=== PATIENT | male | born 1965 | race Caucasian/White ===

== ENCOUNTER 2016-06-10 12:38 | Emergency (ER) | payer SELFPAY ==
[~2016-06-10] VITALS: Ht 180.3 cm; Wt 97.7 kg
[~2016-06-10 12:38] MED LIST: AMOXICILLIN 50500 MG PO; AMOXICILLIN 8751 TAB PO; BACTRIM 400 MG-1 TAB PO; BACTRIM DS 8001 TAB PO; BACTROBAN 22GM22 GM NAS; CEPHALEXIN500 M1 PO; CLEOCIN HC150 MG/CAP PO; DOXYCYCLINE 10100 MG PO; FLAGYL500 MG PO; FLEXERIL10 MG PO; FLOMAX 0.40.4 MG/CAP PO; LEVAQUIN 5500 MG/TA1 PO; LEVAQUIN 5500 MG/TAB PO; LORTAB 5/500 501 TAB PO; MEN'S MULTIVITA1 TAB PO; MOTRIN 200200 MG/TAB PO; NAPROSYN500 MG PO; NEOSPORIN1 OIN OP; NO HOME MEDICATIONS; NORCO 325 MG-51 TAB PO; NORCO 325 MG-7.1 TAB; NORCO 325 MG-7.1 TAB PO; PEN-VEE K500 MG PO; PHENERGAN W/CO120 M1 PO; SEPTRA DS 8001 TAB PO; TESSALON PERLE200 MG PO; TRIAMCINOLONE A15 G2 TP; VALIUM5 MG PO; VENTOLIN0.09 MG IH; ZITHROMAX 250M250 MG PO; ZOFRAN 4MG T4 MG/TAB PO; tussionex PO
[2016-06-10 12:41] VITALS: TEMP 99.3
[2016-06-10 13:54] LABS: BASO % 0.3 % (0.0-2.0); EOS % 0.2 % (0-4.0); GRAN # 8.3 (1.4-6.5); GRAN % 76.7 % (42.2-75.2); HEMATOCRIT 43.4 % (42.0-52.0); HEMOGLOBIN 14.9 g/dl (13.5-18.0); LYMPH # 1.5 (1.2-3.4); LYMPH % 13.5 % (20.0-51.0); MEAN CELL VOLUME 85 fl (80.0-100.0); MEAN CORPUSCULAR HEMOGLOBIN 29 pg (27.0-31.0); MEAN CORPUSCULAR HGB CONC 34 g/dl (33.0-37.0); MEAN PLATELET VOLUME 9.6 fl (7.4-10.4); PLATELET COUNT 210 K/mm3 (130-400); REDCELL DISTRIBUTION WIDTH-CV 12.2 % (11.5-14.5); WHITE BLOOD COUNT 10.8 K/mm3 (4.8-10.8)
[2016-06-10 14:02] LABS: ADJUSTED CALCIUM 9.2 mg/dL (8.4-10.2); ALBUMIN 4.4 gm/dL (3.5-5.0); CALCIUM 9.5 mg/dL (8.4-10.2); CREATININE, serum 1.2 mg/dL (0.66-1.25); POTASSIUM 3.7 mmol/L (3.4-5.0); TOTAL PROTEIN 7.6 gm/dL (6.4-8.2)
[2016-06-10 14:10] LABS: INFLUENZA B NEGATIVE
[2016-06-10 14:55] LABS: PH 5 (5-8); SQUAMOUS EPITHELIAL None Seen /hpf; URINE APPEARANCE Clear; URINE BACTERIA None Seen /hpf; URINE BILIRUBIN Negative (NEGATIVE); URINE BLOOD Negative (NEGATIVE); URINE COLOR Yellow; URINE GLUCOSE Negative (NEGATIVE); URINE KETONE Trace (NEGATIVE); URINE RBC 0-2 /hpf; URINE UROBILINOGEN Negative (NEGATIVE); URINE WBC 0-2 /hpf
[2016-06-10] MEDS ORDERED: CARAFATE S1 GM/10 ML PO (15:45)
[2016-06-10] MEDS ORDERED: PROTONIX 40MG T40 MG PO (15:45)
[2016-06-10 15:51] VITALS: BP 136/87; PULSE 80
== END 2016-06-10 15:59 | disposition home or self-care (01) ==
LOC: COL.ER 12:38
PROVIDERS: Nurse Practitioner
DX: K29.70 Gastritis, unspecified, without bleeding (principal)
CPT/HCPCS: J2405; J7030

== ENCOUNTER 2016-06-14 23:11 | Emergency (ER) | payer SELFPAY ==
[~2016-06-14] VITALS: Ht 182.9 cm; Wt 90.0 kg
[~2016-06-14 23:11] MED LIST changes: +CARAFATE S1 GM/10 ML PO; +PROTONIX 40MG T40 MG PO
[2016-06-14 23:15] VITALS: TEMP 98.9
[2016-06-15 00:12] LABS: BASO % 0.2 % (0.0-2.0); EOS % 0.2 % (0-4.0); GRAN # 5.9 (1.4-6.5); GRAN % 68.1 % (42.2-75.2); HEMATOCRIT 38.6 % (42.0-52.0); HEMOGLOBIN 13.5 g/dl (13.5-18.0); LYMPH # 2.1 (1.2-3.4); LYMPH % 23.8 % (20.0-51.0); MEAN CELL VOLUME 83 fl (80.0-100.0); MEAN CORPUSCULAR HEMOGLOBIN 29 pg (27.0-31.0); MEAN CORPUSCULAR HGB CONC 35 g/dl (33.0-37.0); MEAN PLATELET VOLUME 9.9 fl (7.4-10.4); MONO # 0.6 (0.1-0.6); MONO % 7.4 % (1.7-9.3); PLATELET COUNT 236 K/mm3 (130-400); RED BLOOD COUNT 4.64 M/mm3 (4.20-5.60); WHITE BLOOD COUNT 8.7 K/mm3 (4.8-10.8)
[2016-06-15 00:27] LABS: ADJUSTED CALCIUM 8.7 mg/dL (8.4-10.2); ALANINE AMINOTRANSFERASE 47 U/L (21-72); ALBUMIN 4.1 gm/dL (3.5-5.0); ALKALINE PHOSPHATASE 73 U/L (50-136); ANION GAP 16 mmol/L (7-16); BILIRUBIN,TOTAL 0.8 mg/dL (0.0-1.0); BLOOD UREA NITROGEN 17 mg/dL (9-20); CALCIUM 8.8 mg/dL (8.4-10.2); CARBON DIOXIDE 24 mmol/L (22-30); CHLORIDE 100 mmol/L (98-107); CREATININE, serum 1.06 mg/dL (0.66-1.25); GLUCOSE 117 mg/dL (74-106); LIPASE 84 U/L (23-300); POTASSIUM 3.6 mmol/L (3.4-5.0); SODIUM 139 mmol/L (137-145); TOTAL PROTEIN 7.4 gm/dL (6.4-8.2)
[2016-06-15 00:39] LABS: B-TYPE NATRIURETIC PEPTIDE 18 pg/mL (0-125)
[2016-06-15 00:40] LABS: TROPONIN-I < 0.012 ng/mL (0.000-0.034)
[2016-06-15] MEDS ORDERED: MAGIC MOUTHWASH1 M1 PO (02:24)
[2016-06-15] MEDS ORDERED: DIFLUCAN200 MG PO (02:24)
[2016-06-15] MEDS ORDERED: ZOVIRAX400 MG PO (02:24)
[2016-06-15] MEDS ORDERED: PHENERGAN 25 TA25 MG PO (02:25)
[2016-06-15 02:59] VITALS: BP 140/78; PULSE 68
== END 2016-06-15 03:01 | disposition home or self-care (01) ==
LOC: COL.ER 23:11
PROVIDERS: Emergency Medicine
DX: K20.9 Esophagitis, unspecified (principal); K21.9 Gastro-esophageal reflux disease without esophagitis; R11.0 Nausea; J39.2 Other diseases of pharynx; K14.0 Glossitis
CPT/HCPCS: J2405; J2550; J7030

== ENCOUNTER 2016-06-17 14:13 | Day surgery (SDC) | payer SELFPAY ==
[~2016-06-17] VITALS: Ht 182.9 cm; Wt 92.8 kg
[~2016-06-17 14:13] MED LIST changes: +DIFLUCAN200 MG PO; +MAGIC MOUTHWASH1 M1 PO; +PHENERGAN 25 TA25 MG PO; +ZOVIRAX400 MG PO
[2016-06-17 14:54] VITALS: BP 125/74; PULSE 64; TEMP 98.9
[2016-06-17 16:00] VITALS: BP 117/72; PULSE 72
[2016-06-17 16:15] VITALS: BP 106/74; PULSE 63
[2016-06-17 16:27] VITALS: BP 110/60; PULSE 80
== END 2016-06-17 16:25 | disposition home or self-care (01) ==
LOC: SDCO 14:13
DX: K21.0 Gastro-esophageal reflux disease with esophagitis (principal); K22.2 Esophageal obstruction; R07.9 Chest pain, unspecified
CPT/HCPCS: J2250; J3010

== ENCOUNTER 2016-09-30 01:41 | Emergency (ER) | payer SELFPAY ==
[~2016-09-30] VITALS: Ht 177.8 cm; Wt 97.7 kg
[2016-09-30 01:46] VITALS: TEMP 98.8
[2016-09-30 02:33] LABS: PH 7 (5-8); SQUAMOUS EPITHELIAL None Seen /hpf; URINE APPEARANCE Cloudy; URINE BACTERIA None Seen /hpf; URINE BILIRUBIN Negative (NEGATIVE); URINE BLOOD Negative (NEGATIVE); URINE COLOR Yellow; URINE GLUCOSE Negative (NEGATIVE); URINE KETONE Negative (NEGATIVE); URINE RBC 0-2 /hpf; URINE UROBILINOGEN Negative (NEGATIVE); URINE WBC None Seen /hpf
[2016-09-30] MEDS ORDERED: FLEXERIL 1010 MG/TAB PO (02:43)
[2016-09-30 02:54] VITALS: BP 161/84; PULSE 68
== END 2016-09-30 02:54 | disposition home or self-care (01) ==
LOC: COL.ER 01:41
PROVIDERS: Family Medicine
DX: S39.012A Strain of muscle, fascia and tendon of lower back, initial encounter (principal); Z87.442 Personal history of urinary calculi; Z87.891 Personal history of nicotine dependence; X58.XXXA Exposure to other specified factors, initial encounter
CPT/HCPCS: J1885

== ENCOUNTER 2017-09-14 22:51 | Emergency (ER) | payer SELFPAY ==
[~2017-09-14] VITALS: Ht 180.3 cm; Wt 97.7 kg
[~2017-09-14 22:51] MED LIST changes: +FLEXERIL 1010 MG/TAB PO
[2017-09-14 23:09] VITALS: TEMP 97.9
[2017-09-15] MEDS ORDERED: CEPHALEXIN500 M1 PO (00:20)
[2017-09-15 00:34] VITALS: BP 138/69; PULSE 80
== END 2017-09-15 00:35 | disposition home or self-care (01) ==
LOC: COL.ER 22:51
DX: S60.411A Abrasion of left index finger, initial encounter (principal); F17.220 Nicotine dependence, chewing tobacco, uncomplicated; W31.89XA Contact with other specified machinery, initial encounter; Y92.009 Unspecified place in unspecified non-institutional (private) residence as the place of occurrence of the external cause

== ENCOUNTER 2018-01-19 23:33 | Emergency (ER) | payer SELFPAY ==
[~2018-01-19] VITALS: Ht 182.9 cm; Wt 97.7 kg
[2018-01-19 23:40] VITALS: TEMP 99.1
[2018-01-20] MEDS ORDERED: ZOFRAN ODT4 MG PO (00:10)
[2018-01-20] MEDS ORDERED: ZOVIRAX800 MG PO (00:10)
[2018-01-20 00:42] VITALS: BP 132/70; PULSE 79
== END 2018-01-20 00:50 | disposition home or self-care (01) ==
LOC: COL.ER 23:33
DX: B02.9 Zoster without complications (principal); Z87.891 Personal history of nicotine dependence

== ENCOUNTER 2018-03-05 12:41 | Emergency (ER) | payer SELFPAY ==
[~2018-03-05] VITALS: Ht 177.8 cm; Wt 95.9 kg
[~2018-03-05 12:41] MED LIST changes: +ZOFRAN ODT4 MG PO; +ZOVIRAX800 MG PO
[2018-03-05 12:47] VITALS: BP 161/89; TEMP 98
[2018-03-05] MEDS ORDERED: BACTRIM DS 8001 TAB PO (13:23)
[2018-03-05 13:25] VITALS: PULSE 80
== END 2018-03-05 13:31 | disposition home or self-care (01) ==
LOC: COL.ER 12:41
DX: L03.90 Cellulitis, unspecified (principal); Z98.890 Other specified postprocedural states

== ENCOUNTER 2018-04-07 22:28 | Emergency (ER) | payer SELFPAY ==
[~2018-04-07] VITALS: Ht 180.3 cm; Wt 87.3 kg
[2018-04-07 22:33] VITALS: BP 136/81; TEMP 99.3
[2018-04-07] MEDS ORDERED: TUMS500 MG (22:48)
[2018-04-07 23:17] LABS: BASO % 0.3 % (0.0-2.0); EOS # 0.1 (0.0-0.7); EOS % 1.2 % (0-4.0); GRAN # 10.4 (1.4-6.5); GRAN % 88.7 % (42.2-75.2); HEMATOCRIT 42.4 % (42.0-52.0); HEMOGLOBIN 13.7 g/dl (13.5-18.0); LYMPH # 0.7 (1.2-3.4); LYMPH % 5.6 % (20.0-51.0); MEAN CELL VOLUME 82 fl (80.0-100.0); MEAN CORPUSCULAR HEMOGLOBIN 26 pg (27.0-31.0); MEAN CORPUSCULAR HGB CONC 32 g/dl (33.0-37.0); MEAN PLATELET VOLUME 9.3 fl (7.4-10.4); MONO # 0.5 (0.1-0.6); MONO % 3.9 % (1.7-9.3); PLATELET COUNT 259 K/mm3 (130-400); REDCELL DISTRIBUTION WIDTH-CV 13.3 % (11.5-14.5)
[2018-04-07 23:28] LABS: ALANINE AMINOTRANSFERASE 31 U/L (21-72); ALKALINE PHOSPHATASE 77 U/L (50-136); ANION GAP 8 mmol/L (7-16); AST,SGOT 28 U/L (15-37); BILIRUBIN,TOTAL 0.5 mg/dL (0.0-1.0); BLOOD UREA NITROGEN 16 mg/dL (9-20); CALCIUM 9.4 mg/dL (8.4-10.2); CARBON DIOXIDE 26 mmol/L (22-30); CHLORIDE 103 mmol/L (98-107); CREATININE, serum 1.17 mg/dL (0.66-1.25); GLUCOSE 106 mg/dL (74-106); LIPASE 34 U/L (23-300); POTASSIUM 3.8 mmol/L (3.4-5.0); SODIUM 137 mmol/L (137-145); TOTAL PROTEIN 7.1 gm/dL (6.4-8.2)
[2018-04-07 23:39] LABS: TROPONIN-I < 0.012 ng/mL (0.000-0.035)
[2018-04-08] MEDS ORDERED: PHENERGAN 25 TA25 MG PO (00:20)
[2018-04-08 01:05] LABS: COLLECTION METHOD CLEAN CATCH
[2018-04-08 01:11] LABS: MUCOUS Present /lpf; PH 5 (5-8); SQUAMOUS EPITHELIAL None Seen /hpf; URINE APPEARANCE Clear; URINE BACTERIA None Seen /hpf; URINE BILIRUBIN Negative (NEGATIVE); URINE BLOOD Negative (NEGATIVE); URINE COLOR Yellow; URINE GLUCOSE Negative (NEGATIVE); URINE KETONE Negative (NEGATIVE); URINE LEUKOCYTE ESTERASE Negative (NEGATIVE); URINE NITRATE Negative (NEGATIVE); URINE PROTEIN(semi-quant) Negative (NEGATIVE); URINE RBC 0-2 /hpf; URINE UROBILINOGEN Negative (NEGATIVE)
[2018-04-08 01:31] VITALS: PULSE 106
== END 2018-04-08 01:35 | disposition home or self-care (01) ==
LOC: COL.ER 22:28
PROVIDERS: Emergency Medicine
DX: K21.9 Gastro-esophageal reflux disease without esophagitis (principal); F17.210 Nicotine dependence, cigarettes, uncomplicated; F17.220 Nicotine dependence, chewing tobacco, uncomplicated
CPT/HCPCS: C9113; J2405; J7030